=== PATIENT | female | born 1940 | race Caucasian/White ===

== ENCOUNTER 2022-10-03 10:22 | Day surgery (SDC) | payer OTHER, MEDICARE ==
[2022-10-03 10:29] LABS: Hematocrit 38.2 % (36.0-45.0); Lymphocytes % 15.8 % (15.3-44.8); MCV 88.1 fL (80-100); MPV 7.8 fL (7.6-11.3); RBC Red Blood Cell Count 4.33 M/uL (3.86-4.86)
[2022-10-03 10:42] LABS: Potassium 3.7 mEq/L (3.5-5.1)
[2022-10-03] MEDS ORDERED: NA CHLORIDE 0.9% 500 ML ONE (11:53)
--- NOTE | 2022-10-03 12:33 | RAD REPORT ---
EXAM DESCRIPTION: Norm Pa And Lat (2 Views)10/03/2022 9:47 am CLINICAL HISTORY: pre-cath procedre COMPARISON: Chest Single View dated 05/20/2022 TECHNIQUE: PA and lateral views of the chest. FINDINGS: The lungs are clear. No pneumothorax or effusion. The cardiomediastinal contours are unrem arkable. IMPRESSION: No acute cardiopulmonary process.
[2022-10-03] MEDS ORDERED: HEPA 1000U/500MLS 2,000 UNIT/1,000 ML BAG IV ONE (13:00)
[2022-10-03] MEDS ORDERED: FENTANYL CITR 100 MCG/2 ML ONE (13:00)
[2022-10-03] MEDS ORDERED: HEPARIN 5000 UNIT/ML 1 ML VIAL ONE (13:01)
[2022-10-03] MEDS ORDERED: MIDAZOLAM HCL 2 MG/2 ML INJ ONE (13:01)
[2022-10-03] MEDS ORDERED: CLOPIDOGREL 75 MG TABLET ONE (13:01)
[2022-10-03] MEDS ORDERED: VERAPAMIL HCL 10 MG/4 ML VIAL IV ONE (13:01)
[2022-10-03] MEDS ORDERED: ASPIRIN 325 MG TAB ONE (13:01)
[2022-10-03] MEDS ORDERED: TICAGRELOR 90 MG TABLET PO ONE (13:02)
[2022-10-03] MEDS ORDERED: ATROPINE SULF 1 MG/10 ML SYR IV ONE (13:02)
[2022-10-03] MEDS ORDERED: HEPARIN 10,000 UNIT/10 ML VIAL IV ONE (13:02)
[2022-10-03 13:14] VITALS: TEMP 97.3
[2022-10-03] MEDS ORDERED: LIDOCAINE 1% 20 ML MDV ONE (13:40)
[2022-10-03] MEDS ORDERED: HYDRALAZINE HCL 20 MG/ML VIAL ONE (13:47)
[2022-10-03 15:24] VITALS: O2SAT 99
[2022-10-03 16:00] VITALS: BP 126/62
--- NOTE | 2022-10-03 21:10 | OP ---
Date of Procedure: 10/03/2022 Surgeon: SALOMÓN KHAN Procedures Performed: 1.Selective coronary angiogram. 2.Bilateral selective renal angiogram. Indications: 1.Unstable angina. 2.Renal artery stenosis by Doppler. Access: Right femoral artery 6-Djiboutian closed with StarClose. Complications: None. Estimated Blood Loss: Bleeding less than 10 mL. Anesthesia: Total sedation time was 15 minutes. Description Of Procedure: After risks, benefits, and alternatives were explained, the patient agreed to proceed and signed informed consent. The patient was brought into the cardiac catheterization la boratory and prepped and draped in usual sterile fashion. Then, I accessed right femoral artery usin g micropuncture kit under fluoroscopy and ultrasound guidance, placed a 6-Djiboutian Gray sheath and then took a 6-Djiboutian JL4 catheter into the aortic root over a J-wire, engaged left main and took emma dard views and then exchanged for 6-Djiboutian DEBBIE catheter and engaged the RCA. Then the catheter was u sed to engage the right renal artery, took standard views and left renal artery took standard views. Same catheter was used over the wire to cross the aortic valve and measured the LVEDP. Pullback did not record any gradient and then removed the catheter and sheath and StarClose was used plus manual pressure for closure. Findings: Coronary angiogram: 1.Left main is normal. 2.LAD: Proximal to mid is normal. Patent stent. There are luminal irregularities throughout and d iagonal 2 branch has mid 30% to 40%. 3.The circumflex is very large and dominant with mid luminal irregularity distal 30% diffuse disease , but this supplies the inferior wall very well. There is either a stent that is patent in this karyn ry or it is a calcification of the artery wall. 4.RCA: Small and nondominant and fully free of disease. 5.Elevated LVEDP at 19 mmHg. Bilateral renal angiogram: 1.Right renal artery appears normal, free of disease. 2.Left renal artery has ostial 90% stenosis. Conclusion: 1.Patent left anterior descending stent and mild coronary artery disease elsewhere. 2.Severe left renal artery stenosis. Plan: This patient had a major GI bleed recently so Plavix and aspirin were held. To resume them no w and in 4 weeks, if she has no further bleeding or if the GI bleed was controlled by management, the n I will plan to bring her back for a left renal artery stent placement. /ANDRIY Voice ID: [id number] Report ID: [id number]
--- NOTE | 2022-10-06 17:43 | EKG ---
Test Date: 2022-10-03 Test Time: 09:59:44 [employer] Fitter: CHARLOTTE MEASUREMENT RESULTS: Intervals: Rate: 58 MT: 176 QRSD: 82 QT: 442 QTc: 433 [place]: P: 21 MT: 176 QRS: 4 T: 14 INTERPRETIVE STATEMENTS: Sinus bradycardia Otherwise normal ECG Compared to ECG 05/20/2022 13:27:56 Sinus rhythm no longer present Myocardial infarct finding no longer present Electronically Signed On 10-06-22 17:37:28 CDT by Jonatan Castle
== END 2022-10-03 16:02 | disposition home or self-care (01) ==
LOC: CCL 10:22
PROVIDERS: ATTEND Internal Medicine
DX: I25.110 Atherosclerotic heart disease of native coronary artery with unstable angina pectoris (principal); I70.1 Atherosclerosis of renal artery; I10 Essential (primary) hypertension; E78.2 Mixed hyperlipidemia; E11.9 Type 2 diabetes mellitus without complications; Z95.5 Presence of coronary angioplasty implant and graft; Z87.891 Personal history of nicotine dependence; Z79.899 Other long term (current) drug therapy
CPT/HCPCS: 93005; 85025; 80048; 36415; 82947; 71046; 36252; 93458; 76937; C1893; Q9966; C1887; J1644; J0360; J2001; J2250; J3010; J7040; J0461

== ENCOUNTER 2022-12-04 10:30 | Day surgery (SDC) | payer OTHER, MEDICARE ==
[2022-12-01 10:26] LABS: Absolute Lymphocytes (CBC) 0.8 K/uL (0.7-4.9); Hematocrit 39.7 % (36.0-45.0); Lymphocytes % 12.5 % (15.3-44.8); MPV 7.3 fL (7.6-11.3); RBC Red Blood Cell Count 4.41 M/uL (3.86-4.86)
[2022-12-01 10:40] LABS: Potassium 3.6 mEq/L (3.5-5.1)
--- NOTE | 2022-12-01 11:41 | EKG ---
Test Date: 2022-12-01 Test Time: 10:04:45 [employer] Vault Attendant: RADHIKA MEASUREMENT RESULTS: Intervals: Rate: 55 AR: 184 QRSD: 82 QT: 442 QTc: 422 [place]: P: 21 AR: 184 QRS: 47 T: 25 INTERPRETIVE STATEMENTS: Sinus bradycardia Otherwise normal ECG Compared to ECG 10/03/2022 09:59:44 No significant changes Electronically Signed On 12-01-22 11:41:08 CDT by Dennys Luoise
[2022-12-04] MEDS ORDERED: NA CHLORIDE 0.9% 500 ML ONE (10:50)
[2022-12-04] MEDS ORDERED: MIDAZOLAM HCL 2 MG/2 ML INJ ONE (11:29)
[2022-12-04] MEDS ORDERED: VERAPAMIL HCL 10 MG/4 ML VIAL IV ONE (11:29)
[2022-12-04] MEDS ORDERED: HEPARIN 5000 UNIT/ML 1 ML VIAL ONE (11:29)
[2022-12-04] MEDS ORDERED: FENTANYL CITR 100 MCG/2 ML ONE ×2 (11:29→13:56)
[2022-12-04] MEDS ORDERED: HEPARIN 10,000 UNIT/10 ML VIAL IV ONE (11:30)
[2022-12-04] MEDS ORDERED: NITROGLYCERIN 100 MCG/ML SYR (for cath lab use only) IV ONE (11:30)
[2022-12-04] MEDS ORDERED: ATROPINE SULF 1 MG/10 ML SYR IV ONE (11:30)
[2022-12-04] MEDS ORDERED: CLOPIDOGREL 75 MG TABLET ONE (11:42)
[2022-12-04] MEDS ORDERED: ASPIRIN 325 MG TAB ONE (11:42)
[2022-12-04] MEDS ORDERED: TICAGRELOR 90 MG TABLET PO ONE (11:43)
[2022-12-04] MEDS ORDERED: HYDRALAZINE HCL 20 MG/ML VIAL ONE (12:49)
--- NOTE | 2022-12-04 13:51 | OP ---
Date of Procedure: 12/04/2022 Surgeon: SALOMÓN KHAN Procedures Performed: 1.Left renal selective angiogram. 2.Failed attempt of balloon angioplasty and stent placement of left renal artery. Access: Right femoral artery 8-Macedonian closed with 6-Macedonian Angio-Seal and minimal pressure. Complications: None. Bleeding: Less than 50 mL. Anesthesia: Total sedation time was 45 minutes. Description Of Procedure: After risks, benefits, alternatives were explained, the patient agreed to procedure and signed informed consent. [facility], prepped and draped in the usual sterile fashion. Then, I accessed right femoral artery using ultrasound guidance, fluoroscopy and micropuncture kit, and placed a 6-Macedonian sheath, then upgraded to 8-Macedonian sheath to accommodate the equipments and sent a 7-Macedonian DEBBIE guide, engaged the renal art fernando, took standard views, then sent Run-Through wire, tried to do a balloon angioplasty; however, all the balloons that we have failed to do the angioplasty as the balloon keeps sliding. There is no ch ocolate balloons available here and also there are no good-sized stents, so I decided to abort the pr ocedure and take her to higher level care facility for the angioplasty and stent placement with IVUS guided. Then, I removed all the equipments and the sheath and a 6-Macedonian Angio-Seal for closure with good hemostasis. Assessment And Recommendation: Severe left renal artery stenosis. Plan for a balloon angioplasty an d stent placement at [facility] as soon as possible. /ANDRIY Voice ID: [id number] Report ID: [id number]
[2022-12-04] MEDS ORDERED: FENTANYL CITR 100 MCG/2 ML IV ONE ×2 (14:02→14:54)
[2022-12-04] MEDS ORDERED: HEPA 1000U/500MLS 2,000 UNIT/1,000 ML BAG IV ONE (14:21)
[2022-12-04 16:17] VITALS: BP 145/65; O2SAT 98
== END 2022-12-04 16:18 | disposition home or self-care (01) ==
LOC: CCL 10:30 → OR 10:30 → CCL 16:18
PROVIDERS: ATTEND Internal Medicine
DX: I70.1 Atherosclerosis of renal artery (principal); I25.10 Atherosclerotic heart disease of native coronary artery without angina pectoris; I10 Essential (primary) hypertension; E78.2 Mixed hyperlipidemia; E11.9 Type 2 diabetes mellitus without complications; Z95.5 Presence of coronary angioplasty implant and graft; Z87.891 Personal history of nicotine dependence; Z79.899 Other long term (current) drug therapy
CPT/HCPCS: 93005; 85025; 80048; 36415; 85610; 85347 ×2; 85730; 36251; 76937; C1893; C1760; C1887 ×2; C1725; J0360; J2250; J3010 ×2; J7040; 36902; J0461; J1644